=== PATIENT | male | born 1985 | race American Indian/Alaskan Native ===

== ENCOUNTER 2021-09-17 18:37 | Emergency (ER) | payer MEDICAID ==
[2021-09-17 21:14] LABS: Basophils # (Auto) 0.1 K/mm3 (0.0-0.1); Basophils % (Auto) 1.2 % (0.0-1.8); Eosinophils # (Auto) 0.1 K/mm3 (0.0-0.4); Eosinophils % (Auto) 1.8 % (0.0-4.3); Hematocrit 38.9 % (35.5-45.6); Hemoglobin 13.2 gm/dl (11.8-15.2); Lymphocytes % (Auto) 31.1 % (13.4-35.0); Mean Corpuscular HGB Conc 34 % (32-34); Mean Corpuscular Volume 91 fl (84-94); Monocytes # (Auto) 0.8 K/mm3 (0.0-0.8); Red Blood Count 4.29 M/mm3 (3.65-5.03)
[2021-09-17 21:16] LABS: Bilirubin,Urine NEG (Negative); Blood,Urine SM (Negative); Color,Urine Yellow (Yellow); Mucus,Urine FEW /HPF; Protein,Urine <15 mg/dL mg/dL (Negative); Urobilinogen,Urine < 2.0 mg/dL (<2.0); WBC,Urine < 1.0 /HPF (0.0-6.0)
[2021-09-17 21:26] LABS: Amphetamine Screen,Urine Negative; Benzodiazepines Screen,Urine Negative; Cannabinoid Screen,Urine Negative; Cocaine Screen,Urine Negative; Methadone Screen,Urine Negative; Opiate Screen,Urine Negative
[2021-09-17 21:35] LABS: Alanine Aminotransferase 15 units/L (7-56); Albumin 4.8 g/dL (3.9-5); Blood Urea Nitrogen 13 mg/dL (9-20); Calcium 9.8 mg/dL (8.4-10.2); Hemolysis Index 9
[2021-09-17 21:36] LABS: Platelet Count 100 K/mm3 (140-440)
[2021-09-17 21:50] LABS: BUN/Creatinine Ratio 19
[2021-09-17] MEDS ORDERED: OLANzapine ZYDIS 5 MG TAB PO ONE (23:23)
--- NOTE | 2021-09-17 23:27 | Emergency Department Report ---
ED General Adult HPI - General Chief complaint: Psych Stated complaint: MENTAL EVAL Time Seen by Provider: 09/17/21 20:15 Source: patient Mode of arrival: Ambulatory Limitations: No Limitations - History of Present Illness Initial comments: patient presents with complaints of visual and auditory hallucinations x 2 days. States he has a hx of depression and schizophrenia. Denies SI, HI, MILLER, numbness, weakness, CP, SOB. Severity scale (0 -10): 0 - Related Data Allergies Allergy/AdvReac Type Severity Reaction Status Date / Time No Known Allergies Allergy Verified 09/17/21 18:56 ED Review of Systems ROS: Stated complaint: MENTAL EVAL Other details as noted in HPI Comment: All other systems reviewed and negative Constitutional: denies: chills, fever ED Past Medical Hx - Past Medical History Previous Medical History?: Yes Hx Psychiatric Treatment: Yes (personality disorder, depression with s chizophrenic features,) - Social History Smoking Status: Current Every Day Smoker Substance Use Type: None ED Physical Exam - General Limitations: No Limitations General appearance: alert, in no apparent distress - Head Head exam: Present: atraumatic, normocephalic - Eye Eye exam: Present: PERRL, EOMI - ENT ENT exam: Present: mucous membranes moist, other (airway patent) - Neck Neck exam: Present: other (supple; no JVD) - Respiratory Respiratory exam: Present: other (good air entry, nml I:E, CTAB, no use of HARLAN) - Cardiovascular Cardiovascular Exam: Present: regular rate, normal rhythm. Absent: rubs, gallop - GI/Abdominal GI/Abdominal exam: Present: soft, normal bowel sounds. Absent: distended, tenderness - Extremities Exam Extremities exam: Present: normal inspection, full ROM - Back Exam Back exam: Present: full ROM. Absent: tenderness - Neurological Exam Neurological exam: Present: alert, oriented X3, CN II-XII intact. Absent: motor sensory deficit - Psychiatric Psychiatric exam: Present: other (animated affect; pacing around). Absent: homicidal ideation, suicidal ideation - Skin Skin exam: Present: warm, normal color ED Course Vital Signs 09/17/21 09/17/21 09/17/21 18:50 19:58 20:58 Temperature 98.3 F 99 F Pulse Rate 88 73 Respiratory 14 20 Rate Blood Pressure 144/83 Blood Pressure 145/88 [Right] O2 Sat by Pulse 100 100 98 Oximetry ED Medical Decision Making - Lab Data Result diagrams: 09/17/21 20:53 09/17/21 20:53 Laboratory Tests 09/17/21 09/17/21 09/17/21 20:48 20:48 20:53 WBC 6.5 RBC 4.29 Hgb 13.2 Hct 38.9 MCV 91 MCH 31 MCHC 34 RDW 13.0 L Plt Count 100 L Lymph % (Auto) 31.1 Nash % (Auto) 12.0 H Eos % (Auto) 1.8 Baso % (Auto) 1.2 Lymph # (Auto) 2.0 Nash # (Auto) 0.8 Eos # (Auto) 0.1 Baso # (Auto) 0.1 Seg Neutrophils % 53.9 Seg Neutrophils # 3.5 Sodium Potassium Chloride Carbon Dioxide Anion Gap BUN Creatinine Estimated GFR BUN/Creatinine Ratio Glucose Calcium Total Bilirubin AST ALT Alkaline Phosphatase Total Protein Albumin Albumin/Globulin Ratio Urine Color Yellow Urine Turbidity Clear Urine pH 5.0 Ur Specific [place] 1.023 Urine Protein <15 mg/dl Urine Glucose (UA) Neg Urine Ketones Neg Urine Blood Sm Urine Nitrite Neg Urine Bilirubin Neg Urine Urobilinogen < 2.0 Ur Leukocyte Esterase Neg Urine WBC (Auto) < 1.0 Urine RBC (Auto) 1.0 U Epithel Cells (Auto) 1.0 Urine Mucus Few Salicylates Urine Opiates Screen Negative Urine Methadone Screen Negative Acetaminophen Ur Barbiturates Screen Negative Ur Phencyclidine Scrn Negative Ur Amphetamines Screen Negative U Benzodiazepines Scrn Negative Urine Cocaine Screen Negative U Marijuana (THC) Screen Negative Drugs of Abuse Note Disclamer Plasma/Serum Alcohol 09/17/21 09/17/21 09/17/21 20:53 20:53 20:53 WBC RBC Hgb Hct MCV MCH MCHC RDW Plt Count Lymph % (Auto) Nash % (Auto) Eos % (Auto) Baso % (Auto) Lymph # (Auto) Nash # (Auto) Eos # (Auto) Baso # (Auto) Seg Neutrophils % Seg Neutrophils # Sodium 138 Potassium 4.6 Chloride 102.2 Carbon Dioxide 23 Anion Gap 17 BUN 13 Creatinine 0.7 L Estimated GFR > 60 BUN/Creatinine Ratio 19 Glucose 125 H Calcium 9.8 Total Bilirubin < 0.20 AST 28 ALT 15 Alkaline Phosphatase 66 Total Protein 7.3 Albumin 4.8 Albumin/Globulin Ratio 1.9 Urine Color Urine Turbidity Urine pH Ur Specific [place] Urine Protein Urine Glucose (UA) Urine Ketones Urine Blood Urine Nitrite Urine Bilirubin Urine Urobilinogen Ur Leukocyte Esterase Urine WBC (Auto) Urine RBC (Auto) U Epithel Cells (Auto) Urine Mucus Salicylates < 0.3 L Urine Opiates Screen Urine Methadone Screen Acetaminophen 5.0 L Ur Barbiturates Screen Ur Phencyclidine Scrn Ur Amphetamines Screen U Benzodiazepines Scrn Urine Cocaine Screen U Marijuana (THC) Screen Drugs of Abuse Note Plasma/Serum Alcohol 09/17/21 20:53 WBC RBC Hgb Hct MCV MCH MCHC RDW Plt Count Lymph % (Auto) Nash % (Auto) Eos % (Auto) Baso % (Auto) Lymph # (Auto) Nash # (Auto) Eos # (Auto) Baso # (Auto) Seg Neutrophils % Seg Neutrophils # Sodium Potassium Chloride Carbon Dioxide Anion Gap BUN Creatinine Estimated GFR BUN/Creatinine Ratio Glucose Calcium Total Bilirubin AST ALT Alkaline Phosphatase Total Protein Albumin Albumin/Globulin Ratio Urine Color Urine Turbidity Urine pH Ur Specific [place] Urine Protein Urine Glucose (UA) Urine Ketones Urine Blood Urine Nitrite Urine Bilirubin Urine Urobilinogen Ur Leukocyte Esterase Urine WBC (Auto) Urine RBC (Auto) U Epithel Cells (Auto) Urine Mucus Salicylates Urine Opiates Screen Urine Methadone Screen Acetaminophen Ur Barbiturates Screen Ur Phencyclidine Scrn Ur Amphetamines Screen U Benzodiazepines Scrn Urine Cocaine Screen U Marijuana (THC) Screen Drugs of Abuse Note Plasma/Serum Alcohol < 0.01 EKG: HR 66, SR, nml intervals, diffuse UT depressions, no significant ST deflections from isoelectric line in contiguous leads - Medical Decision Making Patient medically cleared. Mental health consulted. received zyprexa 10 mg PO x 1. Critical care attestation.: If time is entered above; I have spent that time in minutes in the direct care of this critically ill patient, excluding procedure time. ED Disposition Clinical Impression: Psychosis Disposition: 30 STILL A PATIENT Is pt being admited?: No Does the pt Need Aspirin: No Condition: Stable Time of Disposition: 23:55 (Patient care transferred to Dr. Brizuela (night ER doc). Sign out was given by me to him. )
[2021-09-18 08:38] VITALS: BP 148/85
--- NOTE | 2021-09-18 10:40 | Consultation ---
History of Present Illness - Reason for Consult Consult date: 09/18/21 Reason for consult: hallucinations - History of Present Psychiatric Illness The patient is a 36 year old male with history of schizophrenia, depression and BPD. In my encounter with the patient, he is calm, alert and oriented x2. The patient reports ongoing auditory/visual hallucinations. He states he was on " Invega pills." The patient states "the voices are having conversation and he seeing things flying on the floor and also see lights." He denies any current suicidal/homicidal ideation. PSYCHIATRIC HISTORY: Diagnoses: Schizophrenia, Depression and BPD Suicide attempts or Self-harm behavior: Denies Prior psychiatric hospitalizations: Yes Substance Abuse history:Denies Previous psychiatric medications tried: Invega Outpatient treatment: Unknown PAST MEDICAL HISTORY: None reported or document Family Psychiatric History: None reported or documented SOCIAL HISTORY Marital Status: Single Living Arrangements: Lives with sister Employment Status: Unemployed Access to guns/weapons: Denies Education: 9th grade History of Abuse: Denies Legal History: unknown REVIEW OF SYSTEMS Constitutional: Negative for weight loss ENT: Negative for stridor Respiratory: Negative for cough or hemoptysis All other systems reviewed and are negative MENTAL STATUS EXAMINATION General Appearance and Behavior: Age appropriate, good hygiene, wearing appropriate clothes. calm, cooperative Cooperation: Cooperative Psychomotor Behavior: Psychomotor normal Mood: "depressed" Affect and affective range: Congruent with stated mood Thought Process: goal directed Thought Content: Hallucinations Speech: normal tone and pace Suicidal Ideation:Denies Homicidal Ideation:Denies Hallucinations: Auditory/Visual Delusions: None elicited Impulse Control: limited Insight and Judgment: Limited Memory: Limited Attention: attentive Orientation: a/o Assessment (1) Schizophrenia Current Visit: Yes Status: Acute Treatment Plan 1013 Start Invega 3mg po daily Risks, benefits and alternatives of medications discussed with the patient, questions answered and consent obtained from patient. PSYCHOTHERAPY: Supportive psychotherapy provided MEDICAL: Per primary team DELIRIUM PRECAUTIONS: Please re-orient patient frequently, keep lights on during the day, and minimize benzodiazepines and opiates as these medications could w orsen patient's confusion. PAINT PREPPER: Defer to primary DISPOSITION: recommend acute inpatient psychiatric hospitalization at this time. FOLLOW-UP: Will follow. Thanks Case staffed with Dr. Peck Medications and Allergies Allergies Allergy/AdvReac Type Severity Reaction Status Date / Time No Known Allergies Allergy Verified 09/17/21 18:56 Mental Status Exam - Vital signs Last Vital Signs Temp 98.7 F 09/18/21 08:38 Pulse 71 09/18/21 08:38 Resp 18 09/18/21 08:38 BP 148/85 09/18/21 08:38 Pulse Ox 100 09/18/21 08:38 Results Result Diagrams: 09/17/21 20:53 09/17/21 20:53 Abnormal lab results 09/17/21 09/17/21 09/17/21 Range/Units 20:53 20:53 20:53 RDW 13.0 L (13.2-15.2) % Plt Count 100 L (140-440) K/mm3 [place] % (Auto) 12.0 H (0.0-7.3) % Creatinine 0.7 L (0.8-1.3) mg/dL Glucose 125 H (75-100) mg/dL Salicylates < 0.3 L (2.8-20.0) mg/dL Acetaminophen (10.0-30.0) ug/mL 09/17/21 Range/Units 20:53 RDW (13.2-15.2) % Plt Count (140-440) K/mm3 [place] % (Auto) (0.0-7.3) % Creatinine (0.8-1.3) mg/dL Glucose (75-100) mg/dL Salicylates (2.8-20.0) mg/dL Acetaminophen 5.0 L (10.0-30.0) ug/mL All other labs normal.
--- NOTE | 2021-09-18 11:01 | Electrocardiograph Report ---
[facility] Test Date: 2021-09-17 Test Time: 22:13:59 Pat Name: YULIA BUSCH Department: Room: Gender: M [employer] Specialist: ARIK : 1985 Requested By: JULIETA WISEMAN Order Number: [id number] Reading MD: Radhames Delgado Measurements Intervals Hugo Rate: 64 P: 48 WA: 184 QRS: 44 QRSD: 75 T: 54 QT: 364 QTc: 375 Interpretive Statements Sinus rhythm ST ELEV, PROBABLE NORMAL EARLY REPOL PATTERN No previous ECG available for comparison Electronically Signed On 09-18-2021 11:00:37 EDT by Radhames Delgado
--- NOTE | 2021-09-18 11:21 | Event Note ---
Date: 09/18/21 vss medically cleared , awaiting transfer , no events overnight awaitng transfer
[2021-09-18] MEDS ORDERED: PALIPERIDONE ER 3 MG TAB PO SCH (11:30)
== END 2021-09-18 16:33 ==
LOC: ED 18:37 → EEVIPCON 18:37 → ED 09-18 16:33
DX: F29 Unspecified psychosis not due to a substance or known physiological condition (principal); F17.200 Nicotine dependence, unspecified, uncomplicated; Z20.822 Contact with and (suspected) exposure to COVID-19
CPT/HCPCS: 36415; 80053; 80307; 81001; 85025; 93005; 99285; U0003; 80320; G0480